=== PATIENT | male | born 1955 | race African-American/Black ===

== ENCOUNTER 2018-10-25 13:07 | Inpatient (IN) ==
--- NOTE | 2018-10-25 14:35 | PROVIDER DOCUMENTATION ---
HPI-General Adult - General Chief Complaint: Rash Stated Complaint: RASH Time Seen by Provider: 10/25/18 13:20 Source: patient Allergies/Adverse Reactions: Patient Allergies Allergy/AdvReac Type Severity Reaction Status Date / Time albiglutide [From Tanzeum] Allergy RASH Verified 10/25/18 13:27 fentanyl AdvReac Unknown Verified 10/25/18 13:27 lisinopril AdvReac Unknown Verified 10/25/18 13:27 Home Medications: Home Medication List Medication Instructions Recorded Confirmed Last Taken Type Amiodarone [Cordarone] 200 mg PO DAILY 04/26/18 09/20/18 08/04/18 09:00 History Rivaroxaban [Xarelto] 20 mg PO QHS 04/26/18 09/20/18 08/04/18 21:00 History Aspirin EC 81 mg PO QAM 08/06/18 09/20/18 08/04/18 09:00 History Atorvastatin Calcium 40 mg PO EVERY OTHER DAY 08/06/18 09/20/18 08/03/18 08:00 History Brimonidine 0.2% Ophth Soln 1 drp OPHTHALMIC (EYE) BID 08/06/18 09/20/18 08/04/18 21:00 History [Alphagan 0.2% Ophth Soln] Carvedilol 25 mg PO BID 08/06/18 09/20/18 08/04/18 08:00 History Cholecalciferol (Vit D3) [Vitamin 2,000 unit PO DAILY 08/06/18 09/20/18 08/04/18 08:00 History D3] Dorzolamide/Timolol/Pf [Timolol 10 ml OPHTHALMIC (EYE) BID 08/06/18 09/20/18 08/04/18 21:00 History 0.5%-Dorzolamide 2%] Hydroxyzine Pamoate 25 mg PO TID PRN 08/06/18 09/20/18 08/04/18 09:00 History Latanoprost 0.005% Oph Soln 1 drp OPHTHALMIC (EYE) QHS 08/06/18 09/20/18 08/04/18 21:00 History [Xalatan 0.005% Oph Soln] Magnesium Oxide 200 mg PO BID 08/06/18 09/20/18 08/04/18 21:00 History Metformin HCl 1,000 mg PO BID 08/06/18 09/20/18 08/04/18 16:00 History Pantoprazole [Protonix] 40 mg PO DAILY@0700 08/06/18 09/20/18 08/04/18 07:00 History Propylene Glycol/Peg Oph Soln 1 drp OPHTHALMIC (EYE) BID 08/06/18 09/20/18 08/04/18 09:00 History [Systane Eye Drops] Losartan [Cozaar] 50 mg PO DAILY #90 tab 08/11/18 09/20/18 Unknown Rx Torsemide 40 mg PO BID #120 tab 08/11/18 09/20/18 Unknown Rx Insulin Glargine,Hum.rec.anlog 10 unit SQ DAILY #1 insuln.pen 09/20/18 Unknown Rx [Lantus Solostar] - History of Present Illness -Gen Adult Nature of Presenting Problems: Pt. is 63 yom that presents with c/o rash to both legs and buttocks for one week. He denies any other complaint. Location of Pain/Injury: reports: lower extremity. denies: none, head, face, mouth, neck, chest, upper extremity, hand(s), abdomen, back, pelvis, genitalia, feet, upper body, lower body, generalized, other Pain Radiation: reports: buttocks. denies: no radiation, arm(s), back, chest, epigastric, feet, groin, jaw, flank (L), legs (lower), LLQ, LUQ, neck, periumbilical, flank (R), RLQ, RUQ, shoulder(s), scapula, scrotal, sternal notch, suprapubic, legs (upper), urethral, vaginal, other Quality of Pain: reports: other (itching). denies: aching, burning, pressure, sharp Severity: reports: moderate. denies: mild, severe Onset/Duration: reports: gradual, 1 week ago Timing: reports: still present. denies: improving, intermittent, constant, getting worse Context/Activities at Onset: reports: none. denies: light activity, moderate activity, vigorous activity, recent emotional stress, recent physical stress, recent trauma history, possible bad food, cold exposure, eating, out of country travel, rest, sleep, sexual activity, other Modifying Factors: improves with: nothing Associated Symptoms: reports: rash. denies: denies symptoms, anxiety, arm pain, back/neck pain, chest pain, constipation, cough, diaphoresis, diarrhea, dizziness, EENT symptoms, fatigue, fever/chills, genitourinary problems, headaches, heartburn, joint pain, loss of appetite, malaise, muscle aches, sinus congestion/drainage, nausea, seizure, shortness of breath, sensory/motor loss, pain with inspiration, swelling/mass in abdomen, syncope, vomiting, weakness, trouble walking, other Similar Symptoms Previously?: Yes Recently seen or treated by another doctor?: No Review of Systems - Adult - REVIEW OF SYSTEMS - ADULT Constitutional: reports: no symptoms reported Eyes: reports: no symptoms reported Ears, Nose, Mouth & Throat: reports: no symptoms reported Cardiovascular: reports: no symptoms reported Respiratory: reports: no symptoms reported Gastrointestinal: reports: no symptoms reported Genitourinary: reports: no symptoms reported Musculoskeletal: reports: no symptoms reported Integumentary: reports: see HPI, itching, rash, skin thickening. denies: hair loss, mole changes, nail changes Neurological: reports: no symptoms reported Psychiatric: reports: no symptoms reported Past History - Adult - PAST MEDICAL HISTORY-ADULT Review of Records: reports: Old Records Reviewed, Nursing Assessment Review, Medications Reviewed, Social history reviewed & non-contributory. Major Childhood Illnesses: reports: denies history Cardiovascular: reports: A-Fib, CHF, HTN, hyperlipidemia Musculoskeletal: reports: arthritis (osteo) Endocrine/Immune: reports: Diabetes Other Conditions: reports: cataract/glaucoma - PRIOR SURGERIES/PROCEDURES Surgical/Procedure History: reports: orthopedic (extremity) (tendon repair x2), other (cataract removal) - IMMUNIZATION STATUS Childhood Immunizations: See Nurse Assessment Flu Vaccine: See Nurse Assessment - FAMILY HISTORY Family History: reviewed, not pertinent - SOCIAL HISTORY Smoking: non-smoker Physical Exam-General - PHYSICAL EXAM-ADULT Initial Vital Signs Reviewed: Yes - CONSTITUTIONAL General Appearance: alert, no apparent distress. negative: anxious, slow to respond, obtunded, combative - EYES Eyes: PERRL/EOMI, pink conjunctivae - HEAD, EARS, NOSE, MOUTH & THROAT HENMT: normocephalic/atraumatic, moist mucous membranes - NECK Neck: non-tender, full range of motion, supple, normal inspection - RESPIRATORY Respiratory: lungs clear, normal breath sounds - CARDIOVASCULAR Cardiovascular: normal peripheral pulses, regular rate, rhythm, no edema - GASTROINTESTINAL (ABDOMEN) Abdominal Exam: normal bowel sounds, non tender, soft - LYMPHATIC Lymphatic: no adenopathy. negative: axilla node tender, cervical node tenderness - MUSCULOSKELETAL Back Exam: normal inspection, no CVA tenderness, no vertebral tenderness Extremity: erythema, inflammation, swelling, tenderness. negative: deformity Peripheral Pulses: radial (R): 2+, radial (L): 2+ - SKIN Integumentary: erythema (Both upper thighs circumferential and onto the buttocks are warm to touch, indurated and tender. They are cellulitic in nature.), swelling (Both upper thighs circumferential and onto the buttocks are warm to touch, indurated and tender. They are cellulitic in nature.), tenderness (Both upper thighs circumferential and onto the buttocks are warm to touch, indurated and tender. They are cellulitic in nature.), warm (Both upper thighs circumferential and onto the buttocks are warm to touch, indurated and tender. They are cellulitic in nature.). negative: diaphoresis, ecchymosis, jaundice, pallor, rash - NEUROLOGIC Neurologic: grossly normal, no motor/sensory deficits. negative: aphasia, facial droop, focal weakness - PSYCHIATRIC Psych/Mental Status: normal mood/affect, normal thought content, normal thought process, oriented x 3. negative: anxious, paranoid, tearful Progress - PLAN OF CARE/RESULTS Progress/Plan/Lab Results: Vital Signs - 8 hr 10/25/18 13:11 Temperature 97.6 F Pulse Rate 79 Respiratory Rate 18 Blood Pressure 100/61 O2 Sat by Pulse Oximetry 94 L Orders Category Date Time Status Saline Loc NOW Care 10/25/18 14:23 Active BLOOD CULTURE [BLDCUL] Stat Lab 10/25/18 14:24 Uncollected CBC WITH ELECTRONIC DIFF [HEME] Stat Lab 10/25/18 14:23 Uncollected CK PROFILE [SP CHEM] Stat Lab 10/25/18 14:23 Uncollected COMPREHENSIVE METABOLIC PANEL [CHEM] Stat Lab 10/25/18 14:23 Uncollected LACTATE, PLASMA [CHEM] Stat Lab 10/25/18 14:25 Uncollected PRO B-NATRIURETIC PEPTIDE Stat Lab 10/25/18 14:30 Ordered PROTIME WITH INR [COAG] Stat Lab 10/25/18 14:30 Uncollected PTT [COAG] Stat Lab 10/25/18 14:30 Uncollected EKG [EKG] Stat Ther 10/25/18 14:[address] Aleman at bedside for evaluation Laboratory Tests 10/25/18 10/25/18 10/25/18 14:44 14:44 14:44 WBC 5.21 RBC 4.23 L Hgb 11.5 L Hct 36.9 L MCV 87.2 MCH 27.2 MCHC 31.2 L RDW Std Deviation 19.3 H Plt Count 214 MPV 10.0 Immature Gran % (Auto) 0.6 H Neut % (Auto) 60.8 Lymph % (Auto) 24.8 Ector % (Auto) 9.4 H Eos % (Auto) 3.8 Baso % (Auto) 0.6 Immature Gran # (Auto) 0.03 Neut # (Auto) 3.17 Lymph # (Auto) 1.29 Ector # (Auto) 0.49 Eos # (Auto) 0.20 Baso # (Auto) 0.03 PT INR PTT (Actin FS) Sodium 136 Potassium 4.7 Chloride 102 Carbon Dioxide 25 Anion Gap 9 BUN 15 Creatinine 0.8 Estimated GFR/1.73 m2 > 60 BUN/Creatinine Ratio 19 Glucose 271 H Calculated Osmolality 282 Calcium 8.6 L Total Bilirubin 1.59 H AST 17 ALT 11 Alkaline Phosphatase 201 H Creatine Kinase 78 Aah-S-Lnfckezopqr Pept 1871 H Total Protein 7.8 Albumin 2.8 L Globulin 5.0 Albumin/Globulin Ratio 0.6 Plasma Lactate 10/25/18 10/25/18 14:44 14:44 WBC RBC Hgb Hct MCV MCH MCHC RDW Std Deviation Plt Count MPV Immature Gran % (Auto) Neut % (Auto) Lymph % (Auto) Ector % (Auto) Eos % (Auto) Baso % (Auto) Immature Gran # (Auto) Neut # (Auto) Lymph # (Auto) Ector # (Auto) Eos # (Auto) Baso # (Auto) PT 19.3 H INR 1.50 PTT (Actin FS) 40.6 Sodium Potassium Chloride Carbon Dioxide Anion Gap BUN Creatinine Estimated GFR/1.73 m2 BUN/Creatinine Ratio Glucose Calculated Osmolality Calcium Total Bilirubin AST ALT Alkaline Phosphatase Creatine Kinase Eep-I-Ylanauaufhl Pept Total Protein Albumin Globulin Albumin/Globulin Ratio Plasma Lactate 1.5 Discussed results and plan of care with patient. Patient agrees with plan and verbalizes understanding. Result Diagrams: 10/25/18 14:44 10/25/18 14:44 - CONSULTS/PCP/HOSPITALIST Notification #1 *Consult/PCP/Hospitalist*: Nina GRAYSONNP for Time Discussed: 15:56 Reason/Comments: Admission Consult Disposition: Will see in ED, Admit Departure - Departure Date of Disposition Decision: 10/25/18 Time of Disposition Decision: 15:56 DIAGNOSIS: Hyperglycemia, Elevated bilirubin Cellulitis Qualifiers: Site of cellulitis: extremity Site of cellulitis of extremity: lower extremity Laterality: unspecified laterality Qualified Code(s): L03.119 - Cellulitis of unspecified part of limb Disposition: ADMITTED INPATIENT 09 Certified Medical Emergency: Emergent Condition: Stable Referrals and Follow-Ups: Mora Garcia MD [Primary Care Provider] - - Critical Care Note This patient required my direct & personal management of CC.: No Attestation - Physician/ NATALIA Attestation Patient care was provided by Advanced Practice Provider:: Yes Advanced Practice Provider:: Carmelo Traylor Advanced Practice Provider documentation review:: The Mid-level provider documentation, treatment plan and medical decision making was reviewed by the physician who agrees with all treatment and medical decision making by the P. The physician spent face to face time with patient:: Yes Advanced Practice Provider documentation review:: Supervising physician onsite and consulted in the evaluation and care of this patient. The physician did have a face to face encounter with the patient.
[2018-10-25 15:06] LABS: BASO# 0.03 X1000 (0.0-0.2); BASO% 0.6 % (0.0-0.8); EOS% 3.8 % (0.0-10.0); HEMATOCRIT 36.9 % (42.0-52.0); HEMOGLOBIN 11.5 g/dL (14.0-18.0); IMM GRAN# 0.03 X1000 (0.0-0.04); IMM GRAN% 0.6 % (0.0-0.5); LYMPH# 1.29 X1000 (1.2-3.4); LYMPH% 24.8 % (20.5-51.1); MCH 27.2 PG (27-31); MCHC 31.2 g/dL (33-37); MCV 87.2 FL (81-99); MONO# 0.49 X1000 (0.11-0.59); MONO% 9.4 % (1.7-9.3); NEUT# 3.17 X1000 (1.4-6.5); NEUT% 60.8 % (42.2-75.2); PLT 214 X1000 (130-400); RBC 4.23 XMIL (4.7-6.1); RDW 19.3 % (11.5-14.5); WBC 5.21 X1000 (4.8-10.8)
[2018-10-25 15:28] LABS: AGAP 9; ALB/GLOB RATIO 0.6; ALBUMIN 2.8 g/dL (3.5-5.0); ALKALINE PHOSPHATASE 201 U/L (32-122); BUN 15 mg/dL (8-22); CALCIUM 8.6 mg/dL (8.8-10.2); CHLORIDE 102 mmol/L (98-107); CK PROFILE 78 U/L (24-204); COSMO 282; CREATININE 0.8 mg/dL (0.7-1.2); ESTIMATED GFR > 60; GLUCOSE 271 mg/dL (70-104); GOT 17 U/L (10-34); GPT 11 U/L (10-44); POTASSIUM 4.7 mmol/L (3.5-5.1); SODIUM 136 mmol/L (136-145); TCO2 25 mmol/L (25-35); TOTAL BILIRUBIN 1.59 mg/dL (0.20-1.00); TOTAL PROTEIN 7.8 g/dL (6.3-8.3)
[2018-10-25 15:48] LABS: INR 1.5; PROTIME 19.3 Seconds (11.0-16.0)
[2018-10-25 15:50] LABS: PTT 40.6 Seconds (22.3-41.8)
[2018-10-25] MEDS ORDERED: CLINDAMYCIN 600 MG/NS 600 MG/50 ML IVPB IV ONE (15:58)
--- NOTE | 2018-10-25 16:50 | Diag Imaging Result Doc PS360 ---
CHEST-2 VIEWS - 10/25/2018 INDICATION: admission COMPARISON: 08/11/2018 FINDINGS: There is cardiomegaly and pulmonary vascular congestion. There are some minimal hazy infiltrate or edema in the right lower lobe. No pneumothorax or significant pleural effusion. IMPRESSION: Cardiomegaly, pulmonary vascular congestion, mild hazy pulmonary edema. Electronically signed by Walker Hoang 10/25/2018 4:47 PM
[2018-10-25] MEDS ORDERED: TYLENOL PO PRN (18:27)
[2018-10-25] MEDS ORDERED: ZOFRAN IV PRN (18:27)
[2018-10-25 18:31] VITALS: BP 102/63
[2018-10-26] MEDS ORDERED: CLINDAMYCIN 600 MG/D5W 600 MG/50 ML IVPB IV SCH (00:01)
--- NOTE | 2018-10-26 12:31 | DISCHARGE SUMMARY ---
ADMISSION DATE: 10/25/2018 DISCHARGE DATE: 10/25/2018 PRIMARY CARE PHYSICIAN: The MD. ADMITTING DIAGNOSES: 1. Bilateral lower extremity, thigh and buttock cellulitis. 2. Diabetes. 3. Hypertension. 4. Hyperlipidemia. DISCHARGE DIAGNOSES: 1. Bilateral lower extremity, thigh and buttock cellulitis. 2. Diabetes. 3. Hypertension. 4. Hyperlipidemia. SUMMARY OF FINDINGS: Please note this is an AMA discharge summary on Mr. Jomar Al who was admitted for bilateral lower extremity, thigh and buttock cellulitis after he had developed a rash for one week that had progressively worsened and not improved, but after we had admitted the patient he refused to be admitted if he could not get a private room. metal fabricating supervisor and staff explained that they could place him in a semi private room with no one in it but not able to guarantee that no one would be admitted but we did not have a private room available. Patient signed out AMA. Time spent on discharge was 33 minutes. Dictated by THOM Alcocer for Mac New MD cc: THOM Alcocer MD
--- NOTE | 2018-10-26 15:25 | HISTORY AND PHYSICAL ---
PRIMARY CARE PHYSICIAN: The HI. CHIEF COMPLAINT: Of a rash to bilateral lower extremities in his thighs and buttock for 1 week that has progressively worsened. HISTORY OF PRESENT ILLNESS: This is a 63-year-old -Chinese male who presents to [facility] with complaints of a rash to his bilateral thighs and buttock for 1 week states that [facility] and when he applied it, it burned significantly and he had to get in the shower and wash it off. He is noted to have some erythema, warmth to touch, induration and tenderness to bilateral thighs and to his buttock that appear cellulitic in nature. He is noted to have Unna boots to his bilateral calves, lower extremities that were placed today by Home Health. His white blood cell count is normal at 5.21 so he will be admitted for further evaluation and treatment. PAST MEDICAL HISTORY: Of atrial fibrillation, CHF, hypertension, hyperlipidemia, osteoarthritis, diabetes and cataract glaucoma. PAST SURGICAL HISTORY: Of a tendon repair x2 and a cataract removal. FAMILY HISTORY: Reviewed and noncontributory. SOCIAL HISTORY: Currently lives with family. Denies any tobacco, alcohol or illicit drug use. ALLERGIES: To albiglutide, fentanyl and lisinopril. HOME MEDICATIONS: A current list will need to be obtained, reconciled and reviewed and restarted as appropriate. Will place an order for nursing to update and confirm home medications. LABORATORY DATA: Showed a white blood cell count of 5.21, hemoglobin 11.5, hematocrit 36.9, platelets 214,000, PT/INR of 19.3 and 1.50. Sodium 136, potassium 4.7, chloride 102, CO2 25, BUN of 15, creatinine 0.8, glucose 271, total bilirubin of 1.59, alkaline phosphatase 201, creatine kinase of 78, pro-BNP of 1871, plasma lactate of 1.5. Chest x-ray showed cardiomegaly, pulmonary vascular congestion and mild hazy pulmonary edema. REVIEW OF SYSTEMS: He denied any fevers, chills, blurred vision, dizziness, chest pain, coughing, shortness of breath, denied any abdominal pain, constipation, diarrhea, burning or hurting with urination. Was positive for pain to bilateral thighs, tenderness to touch, warmth to touch. PHYSICAL EXAMINATION: VITAL SIGNS: On arrival he had a temperature of 97.6, pulse 79, respirations 18, blood pressure 100/61, saturating 94 % on room air. GENERAL: This is a 63-year-old male who is sitting up in the bed and answers questions appropriately. HEENT: Normocephalic, atraumatic, normal ENT inspection. Oropharynx and nares are clear. Pupils equal, round reactive to light, accommodation. Extraocular movements are intact. NECK: Normal inspection, normal range of motion. LUNGS: Were clear to auscultation bilaterally with equal lung expansion and chest wall movement. HEART : Regular rate and rhythm, no murmurs, rubs or gallops. ABDOMEN: Soft, nontender, nondistended, bowel sounds are present x4 quadrants. MUSCULOSKELETAL: He had 3/5 strength to bilateral lower extremities, 5/5 strength to bilateral upper extremities. NEUROLOGIC: The cranial nerves 2 through 12 appears grossly intact. SKIN: To bilateral thighs and buttock area he is noted to have erythema, edema, induration, warmth to touch, tenderness to touch, no drainage noted. He is noted to have bilateral Unna boots from his knee down that were changed and new ones applied today. ASSESSMENT: 1. Bilateral lower extremity cellulitis. 2. Hypertension. 3. Diabetes type 2. 4. Hyperlipidemia. OUR PLAN: He will be admitted to the medical unit, placed on telemetry, healthy heart diet, diabetic diet, we are going to check a bilateral lower extremity venous Doppler ultrasound, consult Wound Care, place on clindamycin 600 mg IV q.8, Tylenol 650 p.o. q.6 hours p.r.n., Zofran 4 mg IV q.4 hours p.r.n. We have a TSH, free T4 and T4 pending, recheck a CBC, BMP in the a.m. Need to update and confirm home medications as previously noted. Further orders after seen by attending. Dictated by THOM Alcocer for Mac New MD cc: THOM Alcocer MD
--- NOTE | 2018-10-28 20:36 | PROGRESS NOTE ---
DATE: 10/28/2018 SUBJECTIVE: Patient admitted with cellulitis and then left AMA. Subsequently, the patient's blood cultures grew in 1 of 2 bottles MSSA. Attempted to get in touch with patient on 10/26 when blood cultures first became positive, but there was no answer at that time. Attempted to get in contact with the patient again today and did get through to him. After he left here, [facility]. It appears he is being adequately treated. Denied any adverse events after leaving here.
== END 2018-10-25 19:35 | disposition left against medical advice (07) | DRG 603 ==
LOC: ED 13:07 → EDIPHOLD 17:52 → 4N 18:09
PROVIDERS: ATTEND Internal Medicine
CPT/HCPCS: 71020; 71046; 80053; 82550; 83605; 83880; 85025; 85610; 85730; 87040; 87077; 87186; 93005; 93970; 96365; 99285; S0077